=== PATIENT | male | born 1975 | race Caucasian/White ===

== ENCOUNTER 2023-02-19 19:51 | Emergency (ER) | payer MEDICAID, SELFPAY ==
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
[2023-02-19 20:17] VITALS: BP 108/70; PULSE 78; RESP 15; TEMP 36.7; O2SAT 98
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
[2023-02-19] MEDS: naproxen 500 mg Tablet PO (20:51)
== END 2023-02-19 21:03 | disposition home or self-care (01) ==
PROVIDERS: Emergency Provider Emergency Medicine; PCP Nurse Practitioner Family
DX: S39.012A Strain of muscle, fascia and tendon of lower back, initial encounter (principal); V49.9XXA Car occupant (driver) (passenger) injured in unspecified traffic accident, initial encounter; Y93.89 Activity, other specified; Y92.410 Unspecified street and highway as the place of occurrence of the external cause
CPT/HCPCS: 72100; 73562; 99283

== ENCOUNTER 2023-05-01 10:56 | Outpatient (CLI) | payer MEDICAID, SELFPAY ==
--- NOTE | 2023-05-01 11:08 | MR_ITS ---
WS: [id number] MRI LEFT KNEE HISTORY: L KNEE PAIN COMPARISON: LEFT knee radiograph 02/19/2023 Anterior cruciate ligament: Intact. Posterior cruciate ligament: Intact. Medial collateral ligament: Intact. Posterior lateral corner structures: Intact. Small cystic nodule measuring 10 x 11 mm posterior to th e proximal PCL is probably a ganglion. Medial menisci: Horizontal tear in the posterior horn extends to the intra-articular surface and also the free edge. There is mild blunting of the free edge. Anterior horn is normal. Lateral meniscus: Intact. Normal signal, size and shape. Extensor mechanism: Distal quadriceps tendon and patellar tendons are intact. Fluid and soft tissue: Small suprapatellar joint effusion. No Kirby's cyst. Osseous and articular structures: Patellofemoral compartment: Normal. Medial compartment: Very mild narrowing. Mild thinning and fissuring of the cartilage throughout the weightbearing surface of the femoral condyle and tibial plateau. Lateral compartment: Negative. IMPRESSION: 1. Horizontal tear posterior horn medial meniscus extends to the inferior tickler surface and the rickey e edge. 2. Loculated cystic mass measuring 10 x 11 mm in the posterior knee adjacent to the PCL is probably a ganglion. 3. Mild medial compartment narrowing with fissuring and thinning of the cartilage.
== END 2023-05-01 10:57 | disposition home or self-care (01) ==
LOC: RAD 10:59
PROVIDERS: PCP Nurse Practitioner Family; Visit Provider Nurse Practitioner Family
DX: S83.242A Other tear of medial meniscus, current injury, left knee, initial encounter (principal); X58.XXXA Exposure to other specified factors, initial encounter
CPT/HCPCS: 73721

== ENCOUNTER → 2023-11-28 11:22 | Outpatient (BNVA) | payer MEDICAID, SELFPAY | PROVIDERS: Visit Provider Student in an Organized Health Care Education/Training Program | DX: M25.561 Pain in right knee; M94.261 Chondromalacia, right knee | CPT/HCPCS: 73560; 73565 ==

== ENCOUNTER 2025-05-19 07:33 | Day surgery (SDC) | payer MEDICAID, SELFPAY ==
[2025-05-19] VITALS (11 sets, daily range): BP systolic 119–135; BP diastolic 59–84; PULSE 68–80; RESP 14–20; TEMP 36.2–36.8; O2SAT 97–100; BMI 27.9
[2025-05-19] MEDS: acetaminophen 1,000 MG/100 ML PIGGYBACK 400 MG IV (08:19)
--- NOTE | 2025-05-19 08:30 | W.PM.OPSFHP ---
Same Day Surgery H&P Indication for Procedure/HPI DATE OF PROCEDURE: May 19, 2025 CHIEF COMPLAINT/INDICATIONFOR SURGICAL PROCEDURE: Left knee medial meniscus tear PREOP DIAGNOSIS: Left knee medial meniscus tear PLANNED PROCEDURE: Operation Date: 05/19/25 09:35 Proposed Procedures p LEFT Knee Diagnostic and Surgical Arthroscopy w/ PARTIAL Medial Meniscectomy V. Repair(Left) - Mike Gorman DO Medications/Allergies* Home Medications ?Medication ?Instructions ?Recorded ?Confirmed ?Type No Known Home Medications 02/15/25 05/18/25 History Allergies/Adverse Reactions Allergy/AdvReac Type Severity Reaction Status Date / Time No Known Allergies Allergy Verified 05/18/25 13:15 Current Medications: Generic Name Dose Route Start Last Admin Trade Name Freq PRN Reason Stop Dose Admin Sodium Chloride 1,000 mls @ 30 mls/hr 05/19/25 07:45 05/19/25 08:27 Sodium Chloride 0.9% IV 05/20/25 07:44 30 mls/hr .Q24H DAKOTA Administration Pertinent History/Comorbid Conditions* Medical History (Updated 12/15/23 @ 21:21 by Mike Gorman DO) Genital warts Family History (Updated 09/02/22 @ 13:53 by Halie Do LPN) Father, AT AGE 38 Diabetes Mother Gunshot wound Father Social History Smoking and tobacco/nicotine status: former use of tobacco/nicotine Alcohol intake: current Alcohol intake frequency: holidays/special occasions only Marital status: Current occupational status: employed Pertinent Exam Findings alert, oriented x 3, operative site marked and procedure specific exam findings Please refer to detailed orthopedic 02/15/2025 listed below: left knee exam There are no gross deformities of the hips or ankles. The range of motion of both hips and ankles are normal and no tenderness to palpation. There is tenderness to palpation over the medial compartment of the left knee. Positive Mckenzie's examination, there is no tenderness with patella mobilization or over the lateral compartment. There is a negative patella grind maneuver. There is a negative lachmans test and both knees are stable to varus and valgus stress testing. There is no significant varus or valgus malalignment. right knee exam There are no gross deformities of the hips or ankles. The range of motion of both hips and ankles are normal and no tenderness to palpation. There is tenderness to palpation over the medial compartment of the left knee. There is no tenderness with patella mobilization or over the lateral compartment. There is a negative patella grind maneuver. There is a negative lachmans test and both knees are stable to varus and valgus stress testing. There is no significant varus or valgus malalignment. Recommendations Risks and benefits of procedure reviewed and Patient/family agree to proceed Surgery/Procedure today Other Plans: Plan to proceed to the OR today for left knee diagnostic and surgical arthroscopy with partial medial meniscectomy versus repair. Patient understands the ins and outs of the procedure the risk benefits complication alternatives surgical nonsurgical treatment options. Understanding risk of surgery patient elects proceed with surgical invention. All questions answered at this time. Coding Level of Care Code Acute Code for Yi Fwjames
--- NOTE | 2025-05-19 08:51 | ANES.PREANE2 ---
Pre-Anesthetic Assessment Height/Weight: Height 1.78 m Weight 88.451 kg O2 Del Method Room Air 05/19/25 08:09 Preop Diagnosis: Left knee medial meniscus tear Operation Date: 05/19/25 09:35 Proposed Procedures p LEFT Knee Diagnostic and Surgical Arthroscopy w/ PARTIAL Medial Meniscectomy V. Repair(Left) - Mike Gorman DO Familial anesthetic complications: None Was Beta Davin taken within 24 hours: N/A Was Clonidine taken within 24 hours: N/A Last intake: Intake Last Liquid Date 05/18/25 Last Liquid Time 22:00 Last Solid Date 05/18/25 Last Solid Time 22:00 Social No alcohol and No tobacco Exam alert, oriented x 3, clear to auscultation bilaterally and regular rate & rhythm Airway Mallampati: Class II Dentition: chipped (needs extracted) Anesthetic Plan ASA status: 1 Anesthesia: General and Regional (specify below) Risk of > 500 ml blood loss (7ml/kg in children): No Medications/Allergies Home Medications ?Medication ?Instructions ?Recorded ?Confirmed ?Last Taken ?Type No Known Home Medications 02/15/25 05/18/25 Unknown History Allergies Allergy/AdvReac Type Severity Reaction Status Date / Time No Known Allergies Allergy Verified 05/18/25 13:15 Current Medications Generic Name Dose Route Start Last Admin Trade Name Freq PRN Reason Stop Dose Admin Sodium Chloride 1,000 mls @ 30 mls/hr 05/19/25 07:45 05/19/25 08:27 Sodium Chloride 0.9% IV 05/20/25 07:44 30 mls/hr .Q24H DAKOTA Administration PFSH Anesthesia Medical History Genital warts Family History Father , AT AGE 38 Gunshot wound Mother Diabetes Social History Smoking and tobacco/nicotine status: former use of tobacco/nicotine Alcohol intake: current Alcohol intake frequency: holidays/special occasions only Marital status: Current occupational status: employed Anesthesia Procedures Nerve Block Nerve Block 1: Main Anesthesia: general anesthesia Time Out Performed: Yes Consent: requested by attending/covering physician, from patient, from other, risks and benefits reviewed and patient agrees to proceed Nerve block location: adductor canal (L) Anesthesia monitors applied: pulse oximetry, EKG, BP cuff and oxygen Nerve block position: supine Anesthetic Used: ropivicaine 0.5% (30 ml) and with decadron (4 mg) Ultrasound used to: recognize landmarks and visualize and ID femerol nerve Interscalene/Femoral BLK: 4 stimuplex 21 g needle used for position and inplane approach, visualize local anesthetic spread and no vascular puncture identified Injection: neg aspiration of heme Patient Tolerated Procedure: well Complications: none
--- NOTE | 2025-05-19 08:55 | SUR.PREOP ---
08:40 LEFT ADDUCTER CANAL NERVE BLOCK PERFORMED BY DOCTOR Bills USING 30ml OF ROPIVACAINE 0.5%, AND DECADRON 4mg. PT ON FITTING ROOM ATTENDANT SHOWING NSR. TOLERATED PROCEDURE WELL.
[2025-05-19] MEDS: ceFAZolin 2,000 MG in sodium chloride 0.9% (plus) 50 ML 100 MG IV (09:35)
[2025-05-19] MEDS: lidocaine-epi 2% PF 1:200,000 20 mL SDV 40 ML INJECTION (09:53)
--- NOTE | 2025-05-19 10:11 | W.PM.BPON ---
Date of Procedure: 05/19/2025 Surgeon: Mike Gorman DO Sales Project Administrator(s): German Gorman PA-C Procedure(s) performed: Left knee diagnostic and surgical arthroscopy with partial medial meniscectomy Left knee diagnostic and surgical arthroscopy with medial and patellofemoral compartment chondroplasties Left knee diagnostic and surgical arthroscopy with extensive synovectomy (medial lateral patellofemoral compartments) Findings of the procedure(s): Patient underwent procedure as planned without issues or complications taken recovery in stable condition Estimated blood loss: 5 mL Specimen(s) removed: None Post-operative diagnosis: Left knee medial meniscus tear, extensive synovitis, chondromalacia
--- NOTE | 2025-05-19 10:12 | PM.OP ---
Operative Report Date of procedure: May 19, 2025 Surgeon: Mike Gorman DO Respiratory Care Faculty: German Gorman PA-C: PA was necessary for assistance in this case with leg positioning assistance with arthroscopic instrumentation for procedure and assistance in wound closure and dressing application. Procedure: Preoperative diagnosis: Left knee medial meniscus tear Post-op diagnosis: Left knee medial meniscus tear, extensive synovitis, chondromalacia Procedure done: Left knee diagnostic and surgical arthroscopy with partial medial meniscectomy Left knee diagnostic and surgical arthroscopy with medial and patellofemoral compartment chondroplasties Left knee diagnostic and surgical arthroscopy with extensive synovectomy (medial lateral patellofemoral compartments) Surgeon: Mkie Gorman DO Estimated blood loss: 5mL Tourniquet: No tourniquet was used IV fluids: 400mL Complications: None Findings: See operative report narrative Condition: stable Disposition: same day Brief History: Patient is a 49-year-old male with Left?knee?pain.? Patient has failed conservative treatment who has been worked up for Left??knee?pain in the outpatient setting. MRI findings consistent with tear of the medial meniscus. talked in the office about treatment options patient would like to proceed with a Left?knee?diagnostic and surgical arthroscopy with partial medial meniscectomy vs repair.? Patient understand the ins and outs of the procedure the risk benefits complication alternatives to treatment options.? Understanding risk of surgery they agree to proceed with surgical intervention.? Patient understand this may not provide patient with complete symptomatic relief of? pain as patient does have some underlying arthritis.? Understanding this and patient agree to proceed with surgical intervention all questions answered. Procedure: Patient seen and evaluated in the preoperative holding area.? Consent was reviewed and signed with patient.? Correct extremity was then marked.? Patient seen evaluated Anesthesia Department once cleared for surgery patient was taken back to the operative suite.? Patient was transported onto the OR table in supine position.? All bony prominences well-padded patient was appropriate secured to the bed.? Once appropriately anesthetized a nonsterile tourniquet was applied to the Left thigh.? The Left lower extremity was then prepped and draped in standard orthopedic fashion.? Final timeout performed.? Patient received appropriate preoperative antibiotics. Patient received local anesthetic of lidocaine with epinephrine into the joint as well as around the portal sites.? No tourniquet was inflated A standard 2 portal vertical incision diagnostic and surgical arthroscopy of the Left?knee?was performed in standard fashion.? Small stab incision made in the inferolateral portal introduced trocar and arthroscope into the suprapatellar pouch.? Suprapatellar pouch was subsequently visualized and found to have significant synovitis but no loose bodies.? Patient had noticeable significant inflamed infrapatellar fat pad and thickening hypertrophic within the patellofemoral compartment.? ?The medial gutter was free of loose bodies I then introduced the arthroscope into the medial compartment.? Within the medial compartment I then established my inferior medial working portal utilizing spinal needle outside in technique.? Once established I then visualized our articular cartilage of the medial compartment with a valgus stress.? 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 Next I inspected the meniscus.? With an arthroscopic probe was utilized to visual? all aspects of the meniscus.? Meniscal root was found to be intact.? Meniscus was found to be complex tear and at the body to posterior horn junction.? I then subsequently introduced a basket forceps as well as arthroscopic shaver to perform a partial medial meniscectomy to stable meniscal tissue and then utilized a thermal wand to anneal the edges.? Next, I then performed a synovectomy of the medial compartment.? Given patient's chondromalacia there was areas of unstable articular cartilage and I subsequently performed a chondroplasty with arthroscopic shaver and thermal wand.? This completed medial compartment work. Next a introduced the arthroscope to the intercondylar notch.? PCL and ACL were intact. patient had significant thickening of the infrapatellar fat pad spanning into the medial and lateral compartments.? I then performed an extensive synovectomy with the arthroscopic shaver of the patellofemoral medial and lateral compartments as well as the intercondylar notch. No cyst was visible behind ACL or PCL. Next I introduced the arthroscope into the lateral compartment the lateral compartment was found to have grade 1-2 chondromalacia.? Lateral meniscus was found to be intact.? The root was intact.? Given the grade 1-2 chondromalacia there is no unstable cartilage pieces to perform chondroplasty.? This completed my work of the lateral compartment and then performed a synovectomy of the lateral compartment.? Next of the arthroscope was placed into the lateral gutter and this was free of loose bodies.? Finally I reintroduced the arthroscope into the patellofemoral compartment.? The patellofemoral was found to have grade 2 chondromalacia of the patellofemoral compartment mostly throughout with a small area of grade 3 underneath the patella.? Did utilize arthroscopic shaver and thermal wand to perform a patellofemoral compartment chondroplasty stable articular tissue. At this point I utilized arthroscopic shaver as well as thermal wand to perform extensive synovectomy of the patellofemoral compartment. This completed my work of the patellofemoral space.? I then switch my portal sites to the medial working portal.? Completed the rest of my synovectomy and the rest of my examination arthroscopy was normal. All fluid was suctioned from the joint.? ?All instruments were withdrawn.? Portal sites were closed with interrupted nylon suture.? portal sites were then covered with with Xeroform 4 x 4's ABD Curlex and Beau wrap.? Patient was then subsequently awakened from anesthesia and taken to PACU in stable condition. Disposition: Patient taken to PACU in stable condition recovering well.? Will receive appropriate discharge structure as well as pain medication postoperatively as well as? DVT prophylaxis.we will have patient follow-up with us in the office in 2 weeks.? We will weightbearing as tolerated to the Left lower extremity.? Patient understands and agrees with current plan.? All questions answered.
--- NOTE | 2025-05-19 10:33 | PM.PACU ---
PACU note Narrative: Patient is a 49-year-old male that just underwent a left knee arthroscopy. Pt transferred to PACU in stable condition. Dressing is dry. pt is awake and alert. pt can wiggle toes and plantarflex and dorsiflex foot. pt able to perform straight leg raise, Femoral nerve intact. Distal pulses are palpable toes are warm and well-perfused. Cap refill is normal and under 2 seconds. Sensation to foot is intact. Pain is controlled. Exam: awake Disposition: discharged
--- NOTE | 2025-05-19 12:50 | ANE.PACU2 ---
Inpatient post-anesthesia follow up: Airway intact: Yes Vital signs: Temperature 97.9 F Pulse Rate 70 Respiratory Rate 14 Blood Pressure 119/59 Pulse Oximetry 97 Oxygen Delivery Me thod Room Air Oxygen Flow Rate Fraction of Inspir ed Oxygen Hydration adequate: Yes Nausea and vomiting: No Pain level: 1 Mental status: Baseline
--- NOTE | 2025-05-19 13:44 | PC.SOCIAL ---
Crutches Pre-Cert completed for crutches. Confirmation # [id number]. Faxed to HOME @ this time.
== END 2025-05-19 12:50 | disposition home or self-care (01) ==
PROVIDERS: PCP Internal Medicine; Visit Provider Student in an Organized Health Care Education/Training Program
PROC: (CPT 29876; principal; 2025-05-19 09:35)
PROC: (CPT 29876; 2025-05-19 09:35)
PROC: (CPT 29870; 2025-05-19 09:35)
DX: S83.242A Other tear of medial meniscus, current injury, left knee, initial encounter (principal); S83.8X2A Sprain of other specified parts of left knee, initial encounter; X58.XXXA Exposure to other specified factors, initial encounter; M94.262 Chondromalacia, left knee; Z87.891 Personal history of nicotine dependence
CPT/HCPCS: 29876; 29881; J0131; J0690; J1100; J1885; J2250; J2405; J2704; J2795; J3010; J7030; J9999